=== PATIENT | female | born 1955 | race Caucasian/White ===

== ENCOUNTER 2017-06-22 18:09 | Emergency (ER) | payer OTHER ==
[~2017-06-22] VITALS: Ht 165.1 cm; Wt 59.1 kg
[2017-06-22 18:14] VITALS: Ht 165.1 cm; Wt 59.1 kg
--- NOTE | 2017-06-22 18:39 | ERD ---
ER Documentation Chief Complaint Chief Complaint pain right ankle & left wrist s/p trip & fall side walk, today, denies ko HPI 61-year-old female, previously healthy, presents to the emergency department complaining of right foot pain after a mechanical fall that occurred today approximately 5 hours prior to arrival. The patient tripped over uneven pavement, landing on her hands and knees. Currently she is complaining of right foot pain, dull, 8/10, unable to walk. Treatment attempted ibuprofen 200 mg with mild relief of the symptoms. Denies dizziness, chest pain, palpitations previous to the event. History provided by patient. ROS SYSTEMIC symptoms: no fever, chills, no night sweats, no weight loss EYE symptoms: No blurred vision, no eye discharge OTOLARYNGEAL symptoms: No hearing loss. No ear pain, no sore throat CARDIOVASCULAR symptoms: No chest pain or discomfort, no palpitations. PULMONARY symptoms: No dyspnea, no cough, no wheezing. GASTROINTESTINAL symptoms: No abdominal pain, no nausea, no vomiting, no diarrhea MUSCULOSKELETAL symptoms: Per HPI NEUROLOGY symptoms: No confusion, no syncope, no numbness or tingling. SKIN: No rashes Medications Home Meds Active Scripts Ibuprofen* (Motrin*) 600 Mg Tab, 600 MG PO Q8, #30 TAB Prov:ZAID GUZMÁN MD 06/22/17 Allergies Allergies: Coded Allergies: No Known Allergy (Unverified , 06/22/17) PMhx/Soc History of Surgery: No Anesthesia Reaction: No Hx Neurological Disorder: No Hx Respiratory Disorders: No Hx Cardiac Disorders: No Hx Psychiatric Problems: No Hx Miscellaneous Medical Probl: No Hx Alcohol Use: No Hx Substance Use: No Hx Tobacco Use: No Smoking Status: Never smoker Physical Exam Vitals Vital Signs Date Time Temp Pulse Resp B/P Pulse Ox O2 Delivery O2 Flow Rate FiO2 06/22/17 18:14 98.0 93 18 160/71 99 Physical Exam Patient is in no acute distress, vital signs stable. Alert and fully oriented. EYES: PERRLA, EOMI, Sclera and conjunctiva appear normal. EARS: Canals clear, tympanic membranes WNL THROAT: Normal oropharynx. NECK: Supple, No lymphadenopathy. Full ROM without pain or tenderness. HEART: RRR, no rubs, murmurs, clicks or gallops. LUNGS: Clear to auscultation. ABDOMEN: Soft, non-tender without masses or hepatosplenomegaly. EXTREMITIES: Right foot: Mild edema around lateral malleolus, with tenderness to palpation. Limited range of motion for flexion and extension of the ankle, neurovascular exam intact BACK: Full ROM, no deformity, normal back exam NEURO: Cranial nerves grossly intact, no motor or sensory deficit Results 24 hrs Current Medications Medications (Trade) Dose Ordered Sig/Karla Route PRN Reason Start Time Stop Time Status Last Admin Dose Admin Ketorolac Tromethamine (Toradol) 15 mg ONCE STAT IM 06/22/17 18:43 06/22/17 18:45 DC 06/22/17 18:49 [place] [id number] Radiology Main Line: [phone] DIAGNOSTIC IMAGING REPORT Patient: LAVONNE NAVARRO : 1955 Age: 61 Sex: F MR #: [id number] DOS: 06/22/17 1843 Ordering MD: ZAID GUZMÁN MD Location: [facility] Room/Bed: PROCEDURE: XR Foot. CLINICAL INDICATION: Trauma , status post fall, pain TECHNIQUE: AP, lateral and oblique views of the right foot was obtained. The images were reviewed on a PACS workstation. COMPARISON: None. FINDINGS: No acute fracture or dislocation is seen. There is approximate the 1 mm small calcific density at the lateral aspect of the distal interphalangeal joint of the second toe which could be secondary to old trauma. Small posterior calcaneal spur. IMPRESSION: No acute abnormality seen. RPTAT: HJES .Johnathan Teran MD, MD Date Time Electronically viewed and signed by .Johnathan Teran MD, MD on 06/22/2017 19:35 .S/ CC: ZAID GUZMÁN MD Procedures/MDM 61y/o female patient previously healthy, presents to the ED c/o right foot pain for 5 hours after a mechanical fall. Vital signs stable, Physical exam showed right food with tenderness, edema and decreased range of motion lateral malleolus. Differential diagnosis include but not limited to: Sprain/strain, fracture, dislocation. Pertinent Data: Radiology: Right foot x-rays: No fracture or dislocation Physical examination and clinical presentation consistent most likely with right ankle sprain. During the ED course the patient remained stable, no new complaints. Received treatment with stirrup splint. Splint evaluation: Type: Stirrup Location: Right lower extremity Position: good alignment in anatomical position Neurovascular intact The patient was told that elevating the injured part will help reduce pain and swelling. Ice packs can decrease pain and promote healing when applied in the first two days after an injury. The pack should be dry on the outside. Apply it for half an hour three to four times a day. If you have an elastic bandage or sling, remove it for bathing, sleep and when the injury is significantly improved. Rewrap the bandage if it feels too loose or too tight. Results and clinical impression discussed with patient who agrees with management. The patient is stable to be treated outpatient and will be discharged home with a Rx for ibuprofen Side effects of prescribed NSAID medication (GI distress, edema, bleeding, HTN) were reviewed. The patient was instructed to follow up with the primary care provider in the next 48h. If symptoms persist, worsen or new symptoms develop, then patient should return to the ED immediately. Instructions explained and given to patient in Burkinan with acknowledgment and demonstrated understanding. Disclaimer: Inadvertent spelling and grammatical errors are likely due to EHR/ dictation software use and do not reflect on the overall quality of patient care. Also, please note that the electronic time recorded on this note does not necessarily reflect the actual time of the patient encounter. Departure Diagnosis: Primary Impression: Ankle sprain Condition: Stable Additional Instructions: Muchas radhames por [facility] para guardado servicio. Esperamos que en guardado visita a la sergey de emergencia guardado problema medico haya sido solucionado y que se sienta mucho mejor. Para estar seguros que guardado mejoria sigue en proceso, le pedimos el favor de hacer jeana aidan de seguimiento medico con guardado doctor primario en los proximos 2-4 romero. Lleve con usted estos documentos y las medicinas recetadas. Si raman sintomas empeoran y no puede krish a guardado doctor, por favor regrese a sergey de emergencia. En kesha que usted no tenga un mdico de atencin primaria: Llame al mdico o clnica comunitaria de referencia que aparece abajo dorita las horas de consultorio para hacer jeana aidan para que le vean. CLINICAS: [facility] [id number] [facility] [phone] [address] [facility] [phone] [address] [facility] [facility] [phone] [address] [facility] [address] [facility] [phone] [address] [facility]. [phone] ZAID ROACH MD Jun 22, 2017 18:39
[2017-06-22] MEDS ORDERED: KETOROLAC 15 MG INJ IM STA (18:43)
--- NOTE | 2017-06-22 19:35 | RADRPT ---
PROCEDURE: XR Foot. CLINICAL INDICATION: Trauma , status post fall, pain TECHNIQUE: AP, lateral and oblique views of the right foot was obtained. The images were reviewed on a PACS workstation. COMPARISON: None. FINDINGS: No acute fracture or dislocation is seen. There is approximate the 1 mm small calcific density at th e lateral aspect of the distal interphalangeal joint of the second toe which could be secondary to o ld trauma. Small posterior calcaneal spur. IMPRESSION: No acute abnormality seen. RPTAT: HJES .Johnathan Teran MD, MD Date Time Electronically viewed and signed by .Johnathan Teran MD, MD on 06/22/2017 19:35 .S/
[2017-06-22] MEDS ORDERED: IBUP-1542 PO (20:21)
[2017-06-22 20:49] VITALS: BP 130/70; PULSE 80; RESP 17; TEMP 98.5
== END 2017-06-22 20:51 | disposition home or self-care (01) ==
LOC: FTE 18:09
DX: S93.401A Sprain of unspecified ligament of right ankle, initial encounter (principal); W01.0XXA Fall on same level from slipping, tripping and stumbling without subsequent striking against object, initial encounter; Y92.9 Unspecified place or not applicable
CPT/HCPCS: 29515; 73630; 96372; J1885; Z7502

== ENCOUNTER 2017-07-10 13:55 | Emergency (ER) | END 2017-07-10 18:32 | disposition home or self-care (01) ==